=== PATIENT | female | born 1990 | race Hispanic/Latino ===

== ENCOUNTER 2017-12-20 22:53 | Emergency (ER) | payer MEDICAID, OTHER | END 2017-12-20 23:32 | disposition home or self-care (01) | LOC: EDH 22:53 | DX: L72.3 Sebaceous cyst (principal); Z98.51 Tubal ligation status | CPT/HCPCS: 99281 ==

== ENCOUNTER 2018-01-04 23:16 | Emergency (ER) | payer MEDICAID, OTHER ==
[2018-01-04 23:52] LABS: APPEARANCE,URINE Cloudy (CLEAR); BILIRUBIN,URINE Negative (NEGATIVE); COLOR,URINE Yellow (YELLOW); GLUCOSE, URINE (UA) Negative (NEGATIVE); KETONES,URINE Negative (NEGATIVE); LEUKOCYTE ESTERASE ,URINE Moderate (NEGATIVE); NITRATE,URINE Negative (NEGATIVE); OCCULT BLOOD,URINE Trace (NEGATIVE); PH,URINE 5.5 (5.0-8.0); PROTEIN,URINE Negative (NEGATIVE)
[2018-01-04 23:55] LABS: HCG,QUAL RESULT NEGATIVE (NEGATIVE)
[2018-01-04] MEDS ORDERED: KETOROLAC TROMETHAMINE 30MG/ML ONE (23:56)
[2018-01-04] MEDS ORDERED: DiphenhydrAMINE HCL 50 MG/ML VIAL ONE (23:56)
[2018-01-04] MEDS ORDERED: DEXAMETHASONE SOD PHOSPHATE 10MG/ML 1ML VIAL ONE (23:56)
[2018-01-04 23:59] LABS: BACTERIA,URINE None Seen /HPF (None Seen)
[2018-01-05] LABS: MUCUS,URINE Moderate LPF (None Seen); SQUAMOUS EPITHELIAL CELL,UR Few /HPF (0-2)
[2018-01-05 00:02] LABS: AMPHET/METH SCREEN,URINE NEGATIVE (NEGATIVE); BARBITURATE SCREEN, URINE NEGATIVE (NEGATIVE); BENZODIAZEPINES SCREEN,URINE NEGATIVE (NEGATIVE); CANNABINOID SCREEN,URINE NEGATIVE (NEGATIVE); COCAINE SCREEN,URINE NEGATIVE (NEGATIVE); OPIATE SCREEN,URINE NEGATIVE (NEGATIVE); PHENCYCLIDINE SCREEN,URINE NEGATIVE (NEGATIVE)
== END 2018-01-05 00:31 | disposition home or self-care (01) ==
LOC: EDH 23:16
DX: N30.00 Acute cystitis without hematuria (principal); R51 Headache
CPT/HCPCS: 80305; 81001; 81025; 96374; 96375; 99284; J1100; J1200; J1885

== ENCOUNTER 2019-07-04 10:30 | Emergency (ER) | payer MEDICAID, OTHER ==
[2019-07-04 12:08] LABS: BASOPHILS % (AUTO) 0.4 % (0.0-5.0); HEMATOCRIT 40.2 % (36-48); LYMPHOCYTES % (AUTO) 30.9 % (21.0-51.0); MEAN CORPUSCULAR HEMOGLOBIN 27.3 pg (27.0-33.0); MEAN CORPUSCULAR HGB CONC 32.6 g/dL (32.0-36.0); MEAN CORPUSCULAR VOLUME 83.9 fL (79-99); MONOCYTES % (AUTO) 4.7 % (3.0-13.0); NEUTROPHILS % (AUTO) 61.7 % (40.0-77.0); PLATELET COUNT (AUTO) 348 K/uL (130-400); RED BLOOD CELL COUNT(AUTO) 4.79 MIL/uL (4.00-5.50); RED CELL DISTRIBUTION WIDTH 12.7 % (11.0-15.5); WHITE BLOOD COUNT (AUTO) 9.6 K/uL (4.8-10.8)
[2019-07-04 12:08] LABS: APPEARANCE,URINE Turbid (CLEAR); BILIRUBIN,URINE Negative (NEGATIVE); COLOR,URINE Yellow (YELLOW); GLUCOSE, URINE (UA) Negative (NEGATIVE); KETONES,URINE Negative (NEGATIVE); LEUKOCYTE ESTERASE ,URINE Trace (NEGATIVE); NITRATE,URINE Negative (NEGATIVE); OCCULT BLOOD,URINE Negative (NEGATIVE); PROTEIN,URINE Negative (NEGATIVE)
[2019-07-04 12:09] LABS: HCG,QUAL RESULT NEGATIVE (NEGATIVE)
[2019-07-04 12:11] LABS: AMORPHOUS SEDIMENT,UR Moderate /LPF (None Seen); BACTERIA,URINE Rare /HPF (None Seen); RBC,URINE 0-1 /HPF (0-1); SQUAMOUS EPITHELIAL CELL,UR Rare /HPF (0-2); WBC,URINE 0-1 /HPF (0-1)
[2019-07-04 12:14] LABS: AMPHET/METH SCREEN,URINE NEGATIVE (NEGATIVE); BARBITURATE SCREEN, URINE NEGATIVE (NEGATIVE); BENZODIAZEPINES SCREEN,URINE NEGATIVE (NEGATIVE); CANNABINOID SCREEN,URINE NEGATIVE (NEGATIVE); COCAINE SCREEN,URINE NEGATIVE (NEGATIVE); OPIATE SCREEN,URINE NEGATIVE (NEGATIVE); PHENCYCLIDINE SCREEN,URINE NEGATIVE (NEGATIVE)
[2019-07-04 12:18] LABS: CREATININE 0.8 mg/dL (0.5-1.5); POTASSIUM 4.3 mmol/L (3.5-5.1)
== END 2019-07-04 13:26 | disposition home or self-care (01) ==
LOC: EDH 10:30
DX: N64.4 Mastodynia (principal); R42 Dizziness and giddiness
CPT/HCPCS: 36415; 80048; 80305; 81001; 81025; 85025

== ENCOUNTER 2019-12-25 22:00 | Emergency (ER) | payer OTHER ==
[2019-12-25] MEDS ORDERED: IBUPROFEN 600 MG TABLET ONE (23:15)
[2019-12-25] MEDS ORDERED: ACETAMINOPHEN EXTRA STRENGTH 500 MG TABLET ONE (23:19)
== END 2019-12-25 23:54 | disposition home or self-care (01) ==
LOC: EDH 22:00
DX: B34.9 Viral infection, unspecified (principal); J98.9 Respiratory disorder, unspecified; Z20.828 Contact with and (suspected) exposure to other viral communicable diseases; Z98.51 Tubal ligation status
CPT/HCPCS: 36415; 87804 ×2; 99283; U0003

== ENCOUNTER → 2021-07-24 | Emergency (ER) | payer MEDICAID, OTHER ==
[~2021-07-24] VITALS: Ht 160 cm; Wt 95.3 kg
[2021-07-24 09:30] VITALS: BP 128/91
== END ==
LOC: EDH 09:29
DX: R50.9 Fever, unspecified (principal); Z53.21 Procedure and treatment not carried out due to patient leaving prior to being seen by health care provider
CPT/HCPCS: 87635; 87804 ×2; C9803

== ENCOUNTER 2023-11-24 21:47 | Emergency (ER) | payer MEDICAID, OTHER ==
[~2023-11-24] VITALS: Ht 160 cm; Wt 93.9 kg
[2023-11-24 21:48] VITALS: BP 102/77; PULSE 88; RESP 20
[2023-11-24] MEDS: ACETAMINOPHEN 500 MG TABLET PO ONE (22:27)
== END 2023-11-24 22:58 | disposition left against medical advice (07) ==
LOC: EDH 21:47
DX: M79.605 Pain in left leg (principal); H92.02 Otalgia, left ear
CPT/HCPCS: 99282